=== PATIENT | female | born 1945 | race Caucasian/White ===

== ENCOUNTER → 2016-10-24 | Outpatient (CLI) | payer BC | LOC: KOH-I 12:22 | DX: M25.562 Pain in left knee (principal); M25.561 Pain in right knee | CPT/HCPCS: 73562 ==

== ENCOUNTER → 2020-08-09 | Outpatient (CLI) | payer MEDICARE, OTHER ==
[2020-08-09 13:14] LABS: HEMOGLOBIN 16.4 gm/dl (12.3-15.3); RED BLOOD COUNT 4.95 M/UL (4.00-5.10); WHITE BLOOD COUNT 5.4 K/UL (4.5-11.0)
[2020-08-09 13:39] LABS: BUN/CREATININE RATIO 20 (0-10)
== END ==
LOC: LAB 11:50
PROVIDERS: Orthopaedic Surgery
DX: Z01.818 Encounter for other preprocedural examination (principal)
CPT/HCPCS: 36415; 71046; 80053; 85025

== ENCOUNTER → 2021-07-10 | Outpatient (CLI) | payer MEDICARE, OTHER | LOC: KOH-I 11:26 | DX: R10.9 Unspecified abdominal pain (principal) | CPT/HCPCS: 74018 ==

== ENCOUNTER → 2021-10-25 | Outpatient (CLI) | payer MEDICARE, OTHER ==
[~2021-10-25] VITALS: Ht 152.4 cm; Wt 99.8 kg
== END ==
LOC: OPSV 15:00
DX: M81.0 Age-related osteoporosis without current pathological fracture (principal); K90.49 Malabsorption due to intolerance, not elsewhere classified
CPT/HCPCS: 96372